=== PATIENT | male | born 1965 | race Caucasian/White ===

== ENCOUNTER 2022-11-21 08:54 | Outpatient (CLI) | payer OTHER, SELFPAY ==
--- NOTE | 2022-11-21 09:10 | CRLHL7_ITS ---
For Patients: As a result of the Century Cures Act, medical imaging exams and procedure reports are released immediately into your electronic medical record. You may view this report before your referring provider. If you have questions, please contact your health care provider. HISTORY: Increased right upper leg weakness. Right anterior inguinal region pain. Patient with history of rectal cancer. TECHNIQUE: Noncontrast and contrast enhanced MRI of the pelvis. 15 mL of Dotarem intravenous gadolinium administered. COMPARISON: PET-CT from 09/06/2022. CT from 09/02/2022. FINDINGS: Osseous structures: Progressive osseous metastatic disease is present with multifocal metastatic lesions involving the pelvis and proximal femora, several of which are associated with extraosseous tumor extension. There is an approximately 5.2 x 4.2 x 5.5 cm metastatic lesion associated with the right anterior inferior iliac spine as seen on axial T1 post moy fat-sat image #35 series 9. That lesion demonstrates cortical destruction, cortical violation and associated soft tissue tumor extension. On axial STIR image #23 of series 5, there is a focus of linear signal abnormality involving that metastatic lesion which likely reflects the presence of a pathologic fracture. Note that this involves the rectus femoris direct head attachment site. There is also extension of that metastatic tumor into the right iliopsoas muscle. Metastatic lesion involving the right iliac wing demonstrates extraosseous tumor extension anteriorly greater than posteriorly. Multiple additional metastatic lesions are present. Small area of marrow signal abnormality involving the right anterior acetabulum on coronal T1 image #16 of series 2 demonstrates a relatively linear morphology and may indicate a small nondisplaced incomplete fracture. Metastatic lesion involving the anterior intertrochanteric region of the left proximal femur measures approximately 2.5 cm in size, without pathologic fracture. - Hip joints: Mild degenerative changes. No hip joint effusion on either side. No avascular necrosis of either femoral head. - Musculotendinous structures and bursae: No distal gluteal tendon tear. No trochanteric bursal fluid collection. Common hamstring tendons are intact. Distal iliopsoas tendons are intact. - Other findings: Degenerative changes of the pubic symphysis and sacroiliac joints. Degenerative changes within the lower lumbar spine. - Intrapelvic soft tissues: No deep pelvic fluid collection. There are small fat containing inguinal hernias. IMPRESSION: 1. Progressive osseous metastatic disease within the pelvis and proximal femora. 2. On the right, there is a metastatic lesion involving the anterior-inferior iliac spine with associated cortical destruction and extraosseous tumor extension. Suspected pathologic fracture associated with that metastasis. 3. Somewhat linear marrow signal abnormality involving the right anterior acetabulum which may indicate the presence of a small nondisplaced incomplete fracture. 4. Metastatic lesion involving the anterior intertrochanteric region of the left proximal femur, without fracture. Dictated by Junior Jacobson MD @ 11/23/2022 9:22:58 PM (Electronically Signed)
--- NOTE | 2022-11-21 10:15 | CRLHL7_ITS ---
For Patients: As a result of the 21st Century Cures Act, medical imaging exams and procedure reports are released immediately into your electronic medical record. You may view this report before your referring provider. If you have questions, please contact your health care provider. Indication: Increased right upper leg weakness, right anterior inguinal pain. History of rectal cancer. Technique: Multiplanar, multisequence, MRI of the lumbar spine, obtained without and with contrast. A total of 15 mL of gadolinium based IV contrast was administered. Comparison: CT chest abdomen pelvis 01/28/2022 Findings: Preserved lumbar lordosis. No significant spondylolisthesis. Diffuse fatty marrow changes throughout the sacrum, presumed posttreatment-related. T12: Right eccentric superimposed compression fracture without significant retropulsion. L1: T1 hypointense, enhancing lesion involving the spinous process and inferior articular facets. L4: T1 hypointense, enhancing lesions bilateral vertebral body, right larger than left. L5: T1 hypointense, enhancing lesion left superolateral body. S1: Mild superior endplate compression fracture. Right ilium: Multiple (at least 3) T1 hypointense enhancing lesions, including extraosseous extension at the right iliac wing (5-7, image 41). The conus terminates at L1-2. No evidence of arachnoiditis. No suspicious leptomeningeal enhancement. Incidental left renal cyst. Scattered spondylosis, with anterior projecting osteophytes/bridging syndesmophytes in the lower thoracic/upper lumbar spine, scattered shallow disc bulges and facet arthropathy. Mild-moderate bilateral neural foraminal narrowing at L5-S1. However, no evidence of significant spinal canal stenosis. Impression: 1. Multiple enhancing osseous lesions, suspicious for metastatic disease, specifically the L1 posterior elements, L4 and L5 vertebral bodies, and multiple right iliac lesions including exophytic/extraosseous extension at the right iliac wing. 2. Superior endplate compression fractures at T12 and S1. 3. Spondylosis with mild-moderate bilateral L5-S1 neural foraminal narrowing, but no significant spinal canal stenosis. Dictated by Tsering Jenkins MD @ 11/21/2022 12:51:02 PM ----- ADDENDUM ----- Exam report was faxed and message was left for Dr. New at 1 p.m. on 11/21/2022. Dictated by Tsering Jenkins MD @ Nov 21 2022 1:39PM ----- ADDENDUM ----- Request is made to compare to an outside PET-CT from 09/06/2022, which is now available for review. The enhancing osseous lesions at L1, L4, L5, and the medial right ilium are not apparent on the outside PET-CT, and likely new from that exam. The right iliac wing lesion demonstrates FDG avidity on the prior PET exam. However, the exophytic/extraosseous component is likely new over the interval. Dictated by Tsering Jenkins MD @ Nov 25 2022 9:25AM (Electronically Signed)
== END 2022-11-21 08:55 | disposition home or self-care (01) ==
LOC: MRI 08:55
PROVIDERS: Visit Provider Clinical Nurse Specialist
DX: M79.651 Pain in right thigh (principal); C79.51 Secondary malignant neoplasm of bone; C18.9 Malignant neoplasm of colon, unspecified; M48.54XA Collapsed vertebra, not elsewhere classified, thoracic region, initial encounter for fracture; M48.58XA Collapsed vertebra, not elsewhere classified, sacral and sacrococcygeal region, initial encounter for fracture; M47.897 Other spondylosis, lumbosacral region; C41.4 Malignant neoplasm of pelvic bones, sacrum and coccyx; M89.9 Disorder of bone, unspecified
CPT/HCPCS: 72158; 72197; A9575

== ENCOUNTER 2022-11-25 14:33 | Outpatient (CLI) | payer OTHER, SELFPAY ==
--- NOTE | 2022-11-25 15:00 | CRLHL7_ITS ---
For Patients: As a result of the Cures Act, medical imaging exams and procedure reports are released immediately into your electronic medical record. You may view this report before your referring provider. If you have questions, please contact your health care provider. Indication: SECONDARY MALIGNANT NEOPLASM BONE Technique: Two views left hip Comparison: MRI 11/21/2022 Findings: Subtle lytic lesion within the inferior pubic ramus measuring 2.6 cm. Additional inferior pubic ramus lesion noted superiorly measuring 2.3 cm. Subtle intratrochanteric lesion measuring 2.9 cm. Additional lesion within the right inferior pubic ramus. No pathologic fracture. Impression: Multiple subtle lytic lesions. Dictated by Bandar Coughlin MD @ 11/26/2022 11:07:33 AM (Electronically Signed)
--- NOTE | 2022-11-25 15:00 | CRLHL7_ITS ---
For Patients: As a result of the Cures Act, medical imaging exams and procedure reports are released immediately into your electronic medical record. You may view this report before your referring provider. If you have questions, please contact your health care provider. Indication: SECONDARY MALIGNANT NEOPLASM BONE Technique: AP pelvis Comparison: MRI 11/21/2022 Findings: Multifocal subtle lytic lesions are present including a pathologic fracture of the right superior acetabulum. Mild degenerative changes. Postop changes of distal colectomy. Impression: Similar multifocal metastatic lesions with pathologic fracture involving the right superior acetabulum. Dictated by Bandar Coughlin MD @ 11/26/2022 11:34:38 AM (Electronically Signed)
--- NOTE | 2022-11-25 15:05 | CRLHL7_ITS ---
For Patients: As a result of the Century Cures Act, medical imaging exams and procedure reports are released immediately into your electronic medical record. You may view this report before your referring provider. If you have questions, please contact your health care provider. Indication: SECONDARY MALIGNANT NEOPLASM BONE Technique: Two views right hip Comparison: MRI 11/21/2022 Findings: Large lytic lesion within the superior acetabulum measuring 5.5 cm with pathologic fracture laterally. Small subtle lesion in the intertrochanteric right proximal femur. Additional lesion within the inferior pubic ramus. Impression: Large lytic lesion in the superior acetabulum with pathologic fracture. Dictated by Bandar Couhglin MD @ 11/26/2022 11:13:47 AM (Electronically Signed)
--- NOTE | 2022-11-25 15:20 | CRLHL7_ITS ---
For Patients: As a result of the Century Cures Act, medical imaging exams and procedure reports are released immediately into your electronic medical record. You may view this report before your referring provider. If you have questions, please contact your health care provider. Indication: METASTATIC RECTAL CANCER WITH BONE METASTASES, LEFT FOOT PAIN Technique: Left foot 3 views Comparison: CT-PET 09/06/2022 Findings: Bones: Alignment is normal. No fractures or bone lesions. Small calcaneal spurs. Joint spaces: Joint spaces are well maintained. No degenerative changes. Soft tissues: Unremarkable. Impression: No evidence of a destructive osseous lesion or fracture. Dictated by Bandar Coughlin MD @ 11/26/2022 11:29:13 AM (Electronically Signed)
== END 2022-11-25 14:34 | disposition home or self-care (01) ==
LOC: RAD 14:34
PROVIDERS: Visit Provider Physician Assistant
DX: C20 Malignant neoplasm of rectum (principal); C79.51 Secondary malignant neoplasm of bone; M62.81 Muscle weakness (generalized); M47.897 Other spondylosis, lumbosacral region
CPT/HCPCS: 72190; 73502; 73630

== ENCOUNTER 2022-11-27 08:35 | Outpatient (CLI) | payer OTHER, SELFPAY ==
--- NOTE | 2022-11-27 09:15 | CRLHL7_ITS ---
For Patients: As a result of the Century Cures Act, medical imaging exams and procedure reports are released immediately into your electronic medical record. You may view this report before your referring provider. If you have questions, please contact your health care provider. Indication: Compression fracture at T12, back pain, leg weakness, rule out cord compression, metastatic disease Technique: Multiplanar, multisequence MRI of the thoracic spine, obtained without contrast. Comparison: MRI lumbar spine 11/21/2022, PET-CT 09/06/2022 Findings: Slight straightening of the thoracic kyphotic curve. No significant spondylolisthesis. T1 hypointense, avidly enhancing lesion involving the left anteroinferior T8 vertebral body, suspicious for metastatic disease. Additional avidly enhancing/expansile lesions at the right 5th and 10th ribs (series 10, images 27 and 52). Mild FDG avidity was noted in these regions on the prior PET-CT. Additional smaller enhancing lesion slightly more lateral along the posterior right 10th rib (series 10, image 59), without corresponding FDG avidity on prior PET. Redemonstration of T12 superior endplate compression fracture, with confluent bony edema and enhancement, but no significant cortical retropulsion. The visualized spinal cord appears normal in course, caliber, and intrinsic signal. Scattered spondylosis, with moderate left neural foraminal stenosis at T10-11, and mild foraminal narrowing elsewhere. No evidence of significant spinal canal stenosis. Small left pleural effusion. Impression: 1. Avidly enhancing lesion of the T8 vertebral body, with enhancing/expansile lesions of the right 5th and 10th ribs, most consistent with metastatic disease. When compared to the 09/06/2022 PET-CT, there was corresponding FDG avidity at the expansile rib lesions, but not at the T8 vertebral body lesion or the more lateral non expansile right 10th rib lesion. 2. Similar configuration of the T12 superior endplate compression fracture with confluent bony edema and enhancement. 3. Scattered spondylosis, with moderate right T10-11 neural foraminal stenosis, but no significant spinal canal stenosis. Dictated by Tsering Jenkins MD @ 11/27/2022 2:06:49 PM (Electronically Signed)
== END 2022-11-27 08:36 | disposition home or self-care (01) ==
PROVIDERS: Visit Provider Clinical Nurse Specialist
DX: C18.9 Malignant neoplasm of colon, unspecified (principal); C79.51 Secondary malignant neoplasm of bone; C78.00 Secondary malignant neoplasm of unspecified lung; M48.54XA Collapsed vertebra, not elsewhere classified, thoracic region, initial encounter for fracture; M47.894 Other spondylosis, thoracic region
CPT/HCPCS: 72157; A9575

== ENCOUNTER 2022-12-26 09:01 | Outpatient (CLI) | payer OTHER, SELFPAY | END 2022-12-26 09:02 | disposition home or self-care (01) | LOC: MRI 09:02 | PROVIDERS: Visit Provider Internal Medicine | DX: C79.31 Secondary malignant neoplasm of brain (principal) | CPT/HCPCS: 70553; A9575 ==

== ENCOUNTER 2023-03-06 10:01 | Outpatient (CLI) | payer OTHER, SELFPAY ==
--- NOTE | 2023-03-06 10:15 | CRLHL7_ITS ---
For Patients: As a result of the Century Cures Act, medical imaging exams and procedure reports are released immediately into your electronic medical record. You may view this report before your referring provider. If you have questions, please contact your health care provider. INDICATION: Follow up brain mass. History of rectal cancer. Multifocal metastatic disease. TECHNIQUE: Brain MRI with contrast. The following sequences were obtained: Sagittal T1 weighted sequence. DWI and ADC mapping sequences. 3D T2 sequence. 3D FLAIR sequence. T1 weighted post-contrast sequence(s). 15 cc of Dotarem gadolinium based contrast agent was used. COMPARISON: Brain MRI 12/26/2022. FINDINGS: Again demonstrated is the oval T2 hyperintense and peripherally enhancing mass within the left lateral cerebellar hemisphere. It measures 40 millimeters in AP dimension, 49 millimeters in TR dimension, and 27 millimeters in CC dimension. It is decreased in size and severity of enhancement since prior exam. Surrounding vasogenic edema has also decreased. There is reduced mass effect upon the 4th ventricle. No new enhancing intracranial lesions. However, there is a 9 millimeter oval hyperintense lesion within the right anterior temporal white matter as well as an 8 millimeter lesion within the right central cerebellar hemisphere which do not appear typical for ischemia or demyelination and could reflect sites of additional metastatic disease. No evidence of acute ischemia. No hydrocephalus or extra-axial collections. The pituitary gland, parasellar structures and optic chiasm are normal. All the major intracranial vascular structures demonstrate normal flow-related signal. The orbital contents are normal. Low T1 signal within the odontoid process and right C1 lateral mass, new and possibly reflecting osseous metastases. Mild paranasal sinus mucosal thickening. Scattered fluid left-sided mastoid air cells. No extracranial soft tissue findings. IMPRESSION: 1. The left cerebellar oval mass is decreased in size in avidity of enhancement, with accompanying reduction of surrounding vasogenic edema. This may represent a treatment response. 2. New smaller nonenhancing lesions within the right anterior temporal white matter and right cerebellar hemisphere, technically indeterminate but suspicious for sites of nonenhancing metastatic disease. Attention on follow-up recommended. 3. Probable osseous metastatic disease odontoid process and right C1 lateral mass. Dictated by Abhijeet Demarco MD @ 03/06/2023 3:56:40 PM (Electronically Signed)
== END 2023-03-06 10:02 | disposition home or self-care (01) ==
LOC: MRI 10:01
PROVIDERS: Visit Provider Internal Medicine
DX: C79.31 Secondary malignant neoplasm of brain (principal)
CPT/HCPCS: 70553; A9575

== ENCOUNTER 2023-03-12 12:15 | Outpatient (RCR) | payer OTHER, SELFPAY ==
--- NOTE | 2022-09-19 14:28 | ONC.NURNOTE ---
Message left on VM capecitabine start follow up call
[2022-09-30 08:16] LABS: Basophils Absolute Auto 0.01 K/uL (0.00-0.30); Basophils Percent Auto 0.2 % (0.0-3.0); Eosinophils Absolute Auto 0.15 K/uL (0.00-0.50); Eosinophils Percent Auto 3.2 % (0.0-7.0); Hematocrit 39.9 % (37.0-53.0); Hemoglobin* 13.4 gm/dL (13.5-17.5); Immature Granulocytes Abs Auto 0.01 K/uL (0.00-0.30); Immature Granulocytes Pct Auto 0.2 %; Lymphocytes Percent Auto 5.2 % (20-44); Mean Corpuscular HGB Conc 34 gm/dL (32-36); Mean Corpuscular Hemoglobin 32 pg (26-34); Mean Corpuscular Volume 96 fL (80-100); Monocytes Percent Auto 7.1 % (0.0-11.0); Neutrophils Percent Auto 84.1 % (42.0-72.0); Platelet Count* 148 K/uL (140-440); RDW Coefficient of Variation % 13.6 % (11.5-15.5); Red Blood Count 4.16 m/uL (4.30-5.90); White Blood Count* 4.66 K/uL (4.50-11.00)
[2022-09-30 08:21] LABS: Slide Review Reflex No
[2022-09-30 08:25] LABS: Albumin* 3.8 g/dL (3.3-5.0); Chloride* 101 mmol/L (96-114)
[2022-09-30 08:26] LABS: Potassium* 3.8 mmol/L (3.6-5.1); Sodium* 136 mmol/L (135-149)
[2022-09-30 08:28] LABS: Alkaline Phosphatase* 94 U/L (40-150); Aspartate Amino Transferase* 39 U/L (12-35); Bilirubin Total* 0.7 mg/dL (0.1-1.5); Blood Urea Nitrogen* 10 mg/dL (7-30); Carbon Dioxide* 27 mmol/L (20-32); Creatinine* 0.8 mg/dL (0.5-1.5); Estimated Glomerular Filt Rate 103 ml/min; Glucose* 147 mg/dL (60-115); Total Protein* 6.5 g/dL (6.0-8.3)
[2022-09-30 08:29] LABS: Alanine Aminotransferase* 28 U/L (4-50); Calcium* 8.8 mg/dL (8.4-10.6)
[2022-10-01 09:13] LABS: Carcinoembryonic Antigen 35.9 ng/mL (<=3.8)
[2022-10-14 09:21] LABS: Basophils Percent Auto 0.5 % (0.0-3.0); Eosinophils Percent Auto 5.2 % (0.0-7.0); Hematocrit 37.4 % (37.0-53.0); Hemoglobin* 12.5 gm/dL (13.5-17.5); Immature Granulocytes Pct Auto 0.3 %; Mean Corpuscular HGB Conc 33 gm/dL (32-36); Mean Corpuscular Hemoglobin 32 pg (26-34); Mean Corpuscular Volume 97 fL (80-100); Monocytes Percent Auto 11.5 % (0.0-11.0); Neutrophils Percent Auto 76.5 % (42.0-72.0); Platelet Count* 134 K/uL (140-440); RDW Coefficient of Variation % 14.4 % (11.5-15.5); Red Blood Count 3.87 m/uL (4.30-5.90); Slide Review Reflex No; White Blood Count* 3.66 K/uL (4.50-11.00)
[2022-10-14 09:32] LABS: Albumin* 3.7 g/dL (3.3-5.0); Chloride* 107 mmol/L (96-114); Sodium* 139 mmol/L (135-149)
[2022-10-14 09:33] LABS: Potassium* 4.1 mmol/L (3.6-5.1)
[2022-10-14 09:35] LABS: Alanine Aminotransferase* 18 U/L (4-50); Alkaline Phosphatase* 85 U/L (40-150); Aspartate Amino Transferase* 31 U/L (12-35); Bilirubin Total* 0.6 mg/dL (0.1-1.5); Blood Urea Nitrogen* 12 mg/dL (7-30); Calcium* 8.8 mg/dL (8.4-10.6); Carbon Dioxide* 28 mmol/L (20-32); Creatinine* 0.8 mg/dL (0.5-1.5); Estimated Glomerular Filt Rate 103 ml/min; Glucose* 127 mg/dL (60-115); Total Protein* 6.3 g/dL (6.0-8.3)
--- NOTE | 2022-10-29 14:05 | URNOTE ---
Received request for prior auth for Bevacizumab ([id number]), Fluorouracil (J9190), Leucovorin ([id number]), Oxaliplatin ([id number]) and Aloxi ([id number]). Per [facility], Bevacizumab in not the preferred medication. This was then changed to Mvasi which has been approved 10/23/2022-05/03/2023. Per fax from [facility], Fluorouracil ([id number]), Leucovorin ([id number]), Oxaliplatin ([id number]) do not require authorization Per Renetta at [facility], Aloxi ([id number]) also does not require prior authorizaiton. Call Ref #[id number]
[2022-11-04 09:40] LABS: Eosinophils Percent Auto 3.7 % (0.0-7.0); Hematocrit 37.6 % (37.0-53.0); Hemoglobin* 12.7 gm/dL (13.5-17.5); Immature Granulocytes Pct Auto 0.2 %; Lymphocytes Percent Auto 4.4 % (20-44); Mean Corpuscular HGB Conc 34 gm/dL (32-36); Mean Corpuscular Hemoglobin 32 pg (26-34); Mean Corpuscular Volume 95 fL (80-100); Monocytes Percent Auto 12.6 % (0.0-11.0); Neutrophils Percent Auto 79.1 % (42.0-72.0); Platelet Count* 173 K/uL (140-440); RDW Coefficient of Variation % 14.5 % (11.5-15.5); Red Blood Count 3.94 m/uL (4.30-5.90); White Blood Count* 4.05 K/uL (4.50-11.00)
[2022-11-04 09:50] LABS: Slide Review Reflex No
[2022-11-04 09:59] LABS: Chloride* 105 mmol/L (96-114)
[2022-11-04 10:00] LABS: Albumin* 3.9 g/dL (3.3-5.0); Sodium* 138 mmol/L (135-149)
[2022-11-04 10:01] LABS: Potassium* 4.1 mmol/L (3.6-5.1)
[2022-11-04 10:03] LABS: Alanine Aminotransferase* 14 U/L (4-50); Alkaline Phosphatase* 92 U/L (40-150); Aspartate Amino Transferase* 34 U/L (12-35); Blood Urea Nitrogen* 11 mg/dL (7-30); Carbon Dioxide* 29 mmol/L (20-32); Creatinine* 0.8 mg/dL (0.5-1.5); Estimated Glomerular Filt Rate 103 ml/min; Total Protein* 6.7 g/dL (6.0-8.3)
[2022-11-04 10:04] LABS: Calcium* 8.8 mg/dL (8.4-10.6); Glucose* 138 mg/dL (60-115)
[2022-11-04 10:17] LABS: Appearance Urine Clear (Clear); Bilirubin Urine 1+ (Negative); Blood Urine Trace-intact (Negative); Color Urine Yellow (Yellow); Glucose Urine Negative (Negative); Ketones Urine Negative (Negative); Leukocyte Esterase Urine Negative (Negative); Nitrite Urine Negative (Negative); Protein Urine Negative (Negative); Specific Gravity Urine >= 1.030 (1.000-1.030); Urobilinogen Urine 0.2 (0.2-1.0)
[2022-11-04 10:28] LABS: Bacteria Urine Few; Mucus Urine Many; RBC Urine 0-2 (0-2); Squamous Epithelial Cell Urine Moderate (None-Few); WBC Urine 0-2 (0-5)
[2022-11-04] MEDS: dexAMETHasone 20 MG in 0.9 % SODIUM CHLORIDE 100 ml 100 ML 408 MG IVPB (13:23)
[2022-11-04] MEDS: PALONOSETRON 0.25 MG/5 ML inj IV (13:24)
--- NOTE | 2022-11-04 16:00 | ONC.NURNOTE ---
Review of oxaliplatin, 5FU, Avastin and Leucovorin questions addressed handouts given reviewed management of fever, or any other side effects consents and EDYTA reviewed and signed
[2022-11-06 14:12] VITALS: BP 133/84; PULSE 96; RESP 18; TEMP 36.1; O2SAT 97
[2022-11-19 08:28] VITALS: BP 134/95; PULSE 71; RESP 16; TEMP 36.3; O2SAT 100
[2022-11-19 08:44] LABS: Basophils Percent Auto 0.6 % (0.0-3.0); Eosinophils Percent Auto 2.9 % (0.0-7.0); Hematocrit 38.4 % (37.0-53.0); Immature Granulocytes Pct Auto 0.3 %; Lymphocytes Percent Auto 3.5 % (20-44); Mean Corpuscular HGB Conc 34 gm/dL (32-36); Mean Corpuscular Hemoglobin 32 pg (26-34); Mean Corpuscular Volume 95 fL (80-100); Monocytes Percent Auto 12.4 % (0.0-11.0); Neutrophils Percent Auto 80.3 % (42.0-72.0); Platelet Count* 172 K/uL (140-440); RDW Coefficient of Variation % 14.3 % (11.5-15.5); Red Blood Count 4.05 m/uL (4.30-5.90); White Blood Count* 3.46 K/uL (4.50-11.00)
[2022-11-19 08:45] LABS: Slide Review Reflex No
[2022-11-19 08:58] LABS: Albumin* 3.7 g/dL (3.3-5.0); Chloride* 104 mmol/L (96-114); Potassium* 4.1 mmol/L (3.6-5.1); Sodium* 137 mmol/L (135-149)
[2022-11-19 09:00] LABS: Bilirubin Total* 0.5 mg/dL (0.1-1.5); Creatinine* 0.8 mg/dL (0.5-1.5); Estimated Glomerular Filt Rate 103 ml/min
[2022-11-19 09:01] LABS: Alanine Aminotransferase* 18 U/L (4-50); Alkaline Phosphatase* 140 U/L (40-150); Aspartate Amino Transferase* 27 U/L (12-35); Blood Urea Nitrogen* 14 mg/dL (7-30); Calcium* 8.6 mg/dL (8.4-10.6); Carbon Dioxide* 28 mmol/L (20-32); Glucose* 108 mg/dL (60-115); Total Protein* 6.5 g/dL (6.0-8.3)
[2022-11-19 09:07] LABS: Appearance Urine Clear (Clear); Bilirubin Urine 1+ (Negative); Blood Urine Negative (Negative); Color Urine Yellow (Yellow); Glucose Urine Negative (Negative); Ketones Urine Trace (Negative); Leukocyte Esterase Urine Negative (Negative); Nitrite Urine Negative (Negative); Protein Urine Negative (Negative); Specific Gravity Urine 1.025 (1.000-1.030); pH Urine 6.5 (5.0-8.5)
[2022-11-19] MEDS: PALONOSETRON 0.25 MG/5 ML inj IV (11:19)
[2022-11-19] MEDS: dexAMETHasone 20 MG in 0.9 % SODIUM CHLORIDE 100 ml 100 ML 408 MG IVPB (11:19)
[2022-11-21] MEDS: SODIUM CHLORIDE 0.9 % (FLUSH) 10 ML SYRINGE IVF (15:02)
[2022-11-21] MEDS: HEPARIN 500 UNIT/5 ML SYRINGE IVF (15:02)
[2022-12-02 09:56] LABS: Basophils Percent Auto 0.2 % (0.0-3.0); Eosinophils Percent Auto 0.9 % (0.0-7.0); Hematocrit 36.9 % (37.0-53.0); Hemoglobin* 12.7 gm/dL (13.5-17.5); Immature Granulocytes Pct Auto 0.2 %; Lymphocytes Percent Auto 3.5 % (20-44); Mean Corpuscular HGB Conc 34 gm/dL (32-36); Mean Corpuscular Hemoglobin 32 pg (26-34); Mean Corpuscular Volume 93 fL (80-100); Monocytes Percent Auto 10.2 % (0.0-11.0); Platelet Count* 176 K/uL (140-440); RDW Coefficient of Variation % 14.4 % (11.5-15.5); Red Blood Count 3.99 m/uL (4.30-5.90); White Blood Count* 4.23 K/uL (4.50-11.00)
[2022-12-02 09:57] LABS: Slide Review Reflex No
[2022-12-02 10:11] LABS: Albumin* 3.9 g/dL (3.3-5.0); Chloride* 108 mmol/L (96-114); Sodium* 141 mmol/L (135-149)
[2022-12-02 10:13] LABS: Creatinine* 0.6 mg/dL (0.5-1.5); Estimated Glomerular Filt Rate 112 ml/min
[2022-12-02 10:14] LABS: Alanine Aminotransferase* 15 U/L (4-50); Alkaline Phosphatase* 171 U/L (40-150); Aspartate Amino Transferase* 23 U/L (12-35); Bilirubin Total* 0.6 mg/dL (0.1-1.5); Blood Urea Nitrogen* 11 mg/dL (7-30); Carbon Dioxide* 25 mmol/L (20-32); Glucose* 89 mg/dL (60-115); Total Protein* 6.8 g/dL (6.0-8.3)
[2022-12-04 02:02] LABS: Carcinoembryonic Antigen 60.8 ng/mL (<=3.8)
--- NOTE | 2022-12-24 12:02 | ONC.NURNOTE ---
Received call from Dr. Lam [facility] Rad Onc. Pt's recent PET shows mets to brain; coordinating with [facility] for brain MRI in concordance with 12/[address] Burgos. Rad Onc able to sched Brain MRI for Th12/26; no changes in appt with Dr. Burgos. Rad Onc also reports pt to begin Rad Tx to right shoulder and left foot.
[2022-12-30 08:39] LABS: Hematocrit 37.4 % (37.0-53.0); Hemoglobin* 12.7 gm/dL (13.5-17.5); Immature Granulocytes Pct Auto 0.9 %; Lymphocytes Percent Auto 3.6 % (20-44); Mean Corpuscular HGB Conc 34 gm/dL (32-36); Mean Corpuscular Hemoglobin 33 pg (26-34); Mean Corpuscular Volume 98 fL (80-100); Monocytes Percent Auto 14.9 % (0.0-11.0); Neutrophils Percent Auto 80.6 % (42.0-72.0); Platelet Count* 114 K/uL (140-440); RDW Coefficient of Variation % 15.2 % (11.5-15.5); Red Blood Count 3.83 m/uL (4.30-5.90); White Blood Count* 4.42 K/uL (4.50-11.00)
[2022-12-30 08:50] LABS: Appearance Urine Clear (Clear); Bilirubin Urine Negative (Negative); Blood Urine Negative (Negative); Color Urine Dark yellow (Yellow); Glucose Urine Negative (Negative); Ketones Urine Negative (Negative); Leukocyte Esterase Urine Negative (Negative); Nitrite Urine Negative (Negative); Protein Urine Negative (Negative); Specific Gravity Urine 1.025 (1.000-1.030); Urobilinogen Urine 0.2 (0.2-1.0)
[2022-12-30 08:52] LABS: Slide Review Reflex No
[2022-12-30 08:57] LABS: Albumin* 3.8 g/dL (3.3-5.0); Chloride* 106 mmol/L (96-114); Sodium* 138 mmol/L (135-149)
[2022-12-30 09:00] LABS: Alanine Aminotransferase* 27 U/L (4-50); Alkaline Phosphatase* 138 U/L (40-150); Aspartate Amino Transferase* 36 U/L (12-35); Bilirubin Total* 0.7 mg/dL (0.1-1.5); Blood Urea Nitrogen* 18 mg/dL (7-30); Carbon Dioxide* 28 mmol/L (20-32); Creatinine* 0.5 mg/dL (0.5-1.5); Estimated Glomerular Filt Rate 118 ml/min; Glucose* 119 mg/dL (60-115); Potassium* 3.8 mmol/L (3.6-5.1); Total Protein* 6.7 g/dL (6.0-8.3)
[2022-12-30 09:01] LABS: Calcium* 8.9 mg/dL (8.4-10.6)
--- NOTE | 2023-01-02 09:57 | URNOTE ---
Received request for prior auth for Donaldoa ([id number]). Per Suzanne at [facility], prior auth is not required. Call Ref #[id number]
[2023-01-13 08:28] VITALS: BP 144/90; PULSE 90; RESP 16; TEMP 36.9; O2SAT 98
[2023-01-13] MEDS: ZOLEDRONIC ACID 4 MG in 0.9 % SODIUM CHLORIDE 100 ml 100 ML 420 MG IVPB (09:52)
[2023-01-13] MEDS: dexAMETHasone 20 MG in 0.9 % SODIUM CHLORIDE 100 ml 100 ML 408 MG IVPB (10:17)
[2023-01-13] MEDS: PALONOSETRON 0.25 MG/5 ML inj IV (10:17)
[2023-01-13] MEDS: SODIUM CHLORIDE 0.9 % (FLUSH) 10 ML SYRINGE IVF (15:57)
--- NOTE | 2023-01-13 16:03 | ONC.NURNOTE ---
states better pain control now that he is on Oxycontin 15mg bid. Ibuprofen 600mg every 6-12 hr taken with food. and oxycodone 5mg prn for breadthru pain. states usually one oxycodone a day. lt ankle always swollen per pt. no reddness or open areas.
[2023-01-15 10:47] VITALS: BP 127/87; PULSE 87; RESP 16; TEMP 36.9; O2SAT 99
[2023-01-15] MEDS: 0.9 % SODIUM CHLORIDE 1000 ml 1,000 ML IV (11:12)
[2023-01-15] MEDS: SODIUM CHLORIDE 0.9 % (FLUSH) 10 ML SYRINGE IVF (12:15)
[2023-01-15] MEDS: HEPARIN 500 UNIT/5 ML SYRINGE IVF (12:15)
[2023-01-27 08:11] LABS: Basophils Percent Auto 0.4 % (0.0-3.0); Eosinophils Percent Auto 4.4 % (0.0-7.0); Hematocrit 33.2 % (37.0-53.0); Hemoglobin* 11.4 gm/dL (13.5-17.5); Immature Granulocytes Pct Auto 1.1 %; Lymphocytes Percent Auto 6.3 % (20-44); Mean Corpuscular HGB Conc 34 gm/dL (32-36); Mean Corpuscular Hemoglobin 33 pg (26-34); Mean Corpuscular Volume 97 fL (80-100); Monocytes Percent Auto 14.8 % (0.0-11.0); Platelet Count* 84 K/uL (140-440); RDW Coefficient of Variation % 14.3 % (11.5-15.5); Red Blood Count 3.44 m/uL (4.30-5.90); Slide Review Reflex No; White Blood Count* 2.71 K/uL (4.50-11.00)
[2023-01-27 08:14] LABS: Appearance Urine Clear (Clear); Bilirubin Urine 1+ (Negative); Blood Urine Negative (Negative); Color Urine Yellow (Yellow); Glucose Urine Negative (Negative); Ketones Urine Negative (Negative); Leukocyte Esterase Urine Negative (Negative); Nitrite Urine Negative (Negative); Protein Urine 2+ (Negative); Specific Gravity Urine >= 1.030 (1.000-1.030)
[2023-01-27 08:19] LABS: Albumin* 3.2 g/dL (3.3-5.0)
[2023-01-27 08:20] LABS: Chloride* 105 mmol/L (96-114); Potassium* 3.9 mmol/L (3.6-5.1); Sodium* 137 mmol/L (135-149)
[2023-01-27 08:22] LABS: Aspartate Amino Transferase* 28 U/L (12-35); Bilirubin Total* 0.6 mg/dL (0.1-1.5); Carbon Dioxide* 29 mmol/L (20-32); Creatinine* 0.6 mg/dL (0.5-1.5); Estimated Glomerular Filt Rate 112 ml/min
[2023-01-27 08:23] LABS: Alanine Aminotransferase* 18 U/L (4-50); Alkaline Phosphatase* 118 U/L (40-150); Blood Urea Nitrogen* 12 mg/dL (7-30); Glucose* 108 mg/dL (60-115)
[2023-01-27 08:24] LABS: Bacteria Urine Few; Mucus Urine Few; Squamous Epithelial Cell Urine Few (None-Few); WBC Urine 0-2 (0-5)
[2023-01-27] MEDS: PALONOSETRON 0.25 MG/5 ML inj IV (10:16)
[2023-01-27] MEDS: dexAMETHasone 20 MG in 0.9 % SODIUM CHLORIDE 100 ml 100 ML 408 MG IVPB (10:16)
[2023-01-29] MEDS: 0.9 % SODIUM CHLORIDE 1000 ml 1,000 ML IV (10:08)
[2023-01-29 10:16] VITALS: BP 144/90; PULSE 85; RESP 18; O2SAT 99
[2023-01-29] MEDS: OXYCODONE 5 MG TABLET PO (10:41)
[2023-01-29] MEDS: HEPARIN 500 UNIT/5 ML SYRINGE IVF (11:35)
[2023-01-29] MEDS: SODIUM CHLORIDE 0.9 % (FLUSH) 10 ML SYRINGE IVF (11:35)
--- NOTE | 2023-01-29 11:35 | PC.NURSE ---
Addendum entered by Dariana Casey RN 01/29/23 11:49: Correction: pt's radiation oncologist is Dr. Lam. As a matter of fact, Dr. Lam called this RN about something else and he was updated abuot Tashi' new worsening pain. MD will call pt to discuss. Provider follow-up for Tashi at [facility] is scheduled on 02/24/2023. Original Note: Pt present at [facility] for pump off. Tashi states that over the last week his pain has been ramping up on the top of his LEFT foot. Today it is the worst it's been. He rates pain 7-8/10 with movement and weight bearing. RN addressed pt's pain management plan, he states that he is taking Oxycontin 15 mg Q12H and using Oxycodone for BTP. Tashi did not use a Oxycodone this morning as he reports never needing it so soon after taking the long acting medication. RN advised pt to use the Oxycodone as needed, as prescribed for pain management. Tashi verbalized understanding. RN discussed case with Karolina New APRN who entered a one time dose of 5 mg of oral Oxycodone to give now as pt didn't bring any from home. Tashi appreciated this and states that he will call either Dr. Burgos or Dr. Richardson from radiation if this foot pain continues to worsen. This area was radiated recently. Support offered. One liter of NS was given per written orders due to dehydration. Will communicate this new concern to pt's medical oncology team.
[2023-01-29 11:38] LABS: Total Protein Urine 15 mg/dL
[2023-01-29 11:39] LABS: Creatinine Urine 116.2 mg/dL
[2023-01-29 13:21] LABS: Collection Time Urine 24 Hours
[2023-01-29 13:22] LABS: Total Protein 24 Hour Urine 311.3 mg/Day; Total Volume 24 Hour Urine 2075 ml; Urine Creatinine mg/24 Hour 0 mg/Day
--- NOTE | 2023-02-04 16:06 | ONC.NURNOTE ---
Pt called regarding needing a refill of his Oxycontin ER 15mg BID #60 (30 day supply); when contacting his pharmacy via automatic refill, unable to refill until 02/18/23. He filled it on 01/06/23 and has 2 pills left as today is 29 days since filled. Reviewed instructions for taking; he takes as prescribed BID and alternates with Ibuprofen. He has Oxycodone 5 mg tabs for breakthrough that he seldom needs as well as Tramadol which he does not use at all. Reviewed with prescribing provider, Karolina Melvin APRN. Refill was prescribed 01/27/23. Casting Finisher confirmed with pharmacy on file; refill was able to be filled yesterday. The future refill date of 02/18/23 is based on the prescribed refill 01/27/23. Reviewed with pt Oxycontin is ready for pick-up.
[2023-02-10 08:12] VITALS: BP 116/78; PULSE 87; RESP 16; TEMP 36.3; O2SAT 98
[2023-02-10 08:24] LABS: Basophils Percent Auto 0.4 % (0.0-3.0); Eosinophils Percent Auto 1.9 % (0.0-7.0); Hematocrit 33.6 % (37.0-53.0); Hemoglobin* 11.4 gm/dL (13.5-17.5); Immature Granulocytes Pct Auto 0.4 %; Lymphocytes Percent Auto 7.8 % (20-44); Mean Corpuscular HGB Conc 34 gm/dL (32-36); Mean Corpuscular Hemoglobin 33 pg (26-34); Mean Corpuscular Volume 96 fL (80-100); Monocytes Percent Auto 18.5 % (0.0-11.0); Platelet Count* 111 K/uL (140-440); RDW Coefficient of Variation % 15.1 % (11.5-15.5)
[2023-02-10 08:26] LABS: Slide Review Reflex No
[2023-02-10 08:42] LABS: Albumin* 3.4 g/dL (3.3-5.0); Chloride* 104 mmol/L (96-114); Sodium* 137 mmol/L (135-149)
[2023-02-10 08:43] LABS: Potassium* 3.5 mmol/L (3.6-5.1)
[2023-02-10 08:43] LABS: Appearance Urine Clear (Clear); Bilirubin Urine 2+ (Negative); Blood Urine Negative (Negative); Color Urine Amber (Yellow); Glucose Urine Negative (Negative); Ketones Urine Negative (Negative); Leukocyte Esterase Urine Negative (Negative); Nitrite Urine Negative (Negative); Protein Urine 1+ (Negative); Specific Gravity Urine >= 1.030 (1.000-1.030)
[2023-02-10 08:44] LABS: Creatinine* 0.6 mg/dL (0.5-1.5); Estimated Glomerular Filt Rate 112 ml/min
[2023-02-10 08:45] LABS: Alanine Aminotransferase* 16 U/L (4-50); Alkaline Phosphatase* 134 U/L (40-150); Aspartate Amino Transferase* 24 U/L (12-35); Blood Urea Nitrogen* 12 mg/dL (7-30); Calcium* 8.3 mg/dL (8.4-10.6); Carbon Dioxide* 28 mmol/L (20-32); Glucose* 127 mg/dL (60-115); Total Protein* 6.2 g/dL (6.0-8.3)
[2023-02-10 08:57] LABS: RBC Urine 0-2 (0-2); WBC Urine 0-2 (0-5)
[2023-02-10 08:58] LABS: Amorphous Sediment Urine Few; Bacteria Urine Few; Mucus Urine Moderate; Squamous Epithelial Cell Urine Few (None-Few)
[2023-02-10] MEDS: 0.9 % SODIUM CHLORIDE 1000 ml 1,000 ML 500 ML IV (09:20)
[2023-02-10] MEDS: ZOLEDRONIC ACID 4 MG in 0.9 % SODIUM CHLORIDE 100 ml 100 ML 420 MG IVPB (10:49)
[2023-02-10] MEDS: PALONOSETRON 0.25 MG/5 ML inj IV (11:14)
[2023-02-10] MEDS: dexAMETHasone 20 MG in 0.9 % SODIUM CHLORIDE 100 ml 100 ML 420 MG IVPB (11:14)
[2023-02-12] MEDS: 0.9 % SODIUM CHLORIDE 1000 ml 1,000 ML IV (10:46)
[2023-02-12 10:47] VITALS: BP 109/79; PULSE 95; RESP 16; TEMP 36.1; O2SAT 96
[2023-02-12] MEDS: HEPARIN 500 UNIT/5 ML SYRINGE IVF (10:47)
[2023-02-12] MEDS: SODIUM CHLORIDE 0.9 % (FLUSH) 10 ML SYRINGE IVF (10:47)
[2023-02-24 08:23] LABS: Basophils Percent Auto 0.5 % (0.0-3.0); Eosinophils Percent Auto 2.7 % (0.0-7.0); Hematocrit 34.5 % (37.0-53.0); Hemoglobin* 11.5 gm/dL (13.5-17.5); Immature Granulocytes Pct Auto 0.2 %; Lymphocytes Percent Auto 5.9 % (20-44); Mean Corpuscular HGB Conc 33 gm/dL (32-36); Mean Corpuscular Hemoglobin 33 pg (26-34); Mean Corpuscular Volume 98 fL (80-100); Monocytes Percent Auto 11.2 % (0.0-11.0); Neutrophils Percent Auto 79.5 % (42.0-72.0); Platelet Count* 106 K/uL (140-440); RDW Coefficient of Variation % 16.5 % (11.5-15.5); Red Blood Count 3.51 m/uL (4.30-5.90); White Blood Count* 4.09 K/uL (4.50-11.00)
[2023-02-24 08:25] LABS: Slide Review Reflex No
[2023-02-24 08:37] LABS: Albumin* 3.4 g/dL (3.3-5.0); Chloride* 106 mmol/L (96-114)
[2023-02-24 08:38] LABS: Appearance Urine Clear (Clear); Bilirubin Urine 2+ (Negative); Blood Urine Negative (Negative); Color Urine Amber (Yellow); Glucose Urine Negative (Negative); Ketones Urine Trace (Negative); Leukocyte Esterase Urine Negative (Negative); Nitrite Urine Negative (Negative); Potassium* 3.4 mmol/L (3.6-5.1); Protein Urine 2+ (Negative); Sodium* 138 mmol/L (135-149); Specific Gravity Urine >= 1.030 (1.000-1.030); pH Urine 6.5 (5.0-8.5)
[2023-02-24 08:40] LABS: Aspartate Amino Transferase* 68 U/L (12-35); Bilirubin Total* 1.1 mg/dL (0.1-1.5); Blood Urea Nitrogen* 12 mg/dL (7-30); Carbon Dioxide* 29 mmol/L (20-32); Creatinine* 0.6 mg/dL (0.5-1.5); Estimated Glomerular Filt Rate 112 ml/min; Total Protein* 6.1 g/dL (6.0-8.3)
[2023-02-24 08:41] LABS: Alanine Aminotransferase* 40 U/L (4-50); Alkaline Phosphatase* 135 U/L (40-150); Calcium* 8.4 mg/dL (8.4-10.6); Glucose* 115 mg/dL (60-115)
[2023-02-24 08:52] LABS: RBC Urine 0-2 (0-2); WBC Urine 0-2 (0-5)
[2023-02-24 08:53] LABS: Mucus Urine Few
[2023-02-24] MEDS: HEPARIN 500 UNIT/5 ML SYRINGE IVF (11:38)
[2023-02-24] MEDS: dexAMETHasone 20 MG in 0.9 % SODIUM CHLORIDE 100 ml 100 ML 408 MG IVPB (11:38)
[2023-02-24] MEDS: PALONOSETRON 0.25 MG/5 ML inj IV (11:38)
[2023-02-24] MEDS: SODIUM CHLORIDE 0.9 % (FLUSH) 10 ML SYRINGE IVF (11:38)
--- NOTE | 2023-02-24 15:34 | ONC.NURNOTE ---
Kinza well. was a bit upset he had to wait 20 minutes for pharmacy med to be ready. did appoligize.
[2023-02-26] MEDS: 0.9 % SODIUM CHLORIDE 1000 ml 1,000 ML IV (12:54)
[2023-02-26] MEDS: SODIUM CHLORIDE 0.9 % (FLUSH) 10 ML SYRINGE IVF (12:54)
[2023-02-26] MEDS: HEPARIN 500 UNIT/5 ML SYRINGE IVF (12:54)
[2023-02-26 13:00] VITALS: BP 102/69; PULSE 85; RESP 16; TEMP 36.8; O2SAT 98
--- NOTE | 2023-02-26 13:13 | ONC.NURNOTE ---
PET ordered placed by Dr Burgos at [place] date is 03/17 when patient is traveling message sent to Dr burgos that if patient unable to move pET to date prior to 03/17/23 then he will wait to have PET done after he returns from [place] on 03/24/23 next chemo and VV with provider set up for 03/25/23- may need to be changed to accomodate PET schedule
[2023-03-06] MEDS: SODIUM CHLORIDE 0.9 % (FLUSH) 10 ML SYRINGE IVF (11:19)
[2023-03-06] MEDS: HEPARIN 500 UNIT/5 ML SYRINGE IVF (11:19)
[2023-03-10 08:43] LABS: Appearance Urine Clear (Clear); Bilirubin Urine Negative (Negative); Blood Urine Negative (Negative); Color Urine Yellow (Yellow); Glucose Urine Negative (Negative); Ketones Urine Negative (Negative); Leukocyte Esterase Urine Negative (Negative); Nitrite Urine Negative (Negative); Protein Urine Negative (Negative); Specific Gravity Urine 1.015 (1.000-1.030); Urobilinogen Urine 0.2 (0.2-1.0)
[2023-03-10 08:50] LABS: Basophils Percent Auto 0.2 % (0.0-3.0); Eosinophils Percent Auto 0.5 % (0.0-7.0); Hematocrit 32.3 % (37.0-53.0); Hemoglobin* 10.9 gm/dL (13.5-17.5); Immature Granulocytes Pct Auto 0.5 %; Lymphocytes Percent Auto 4.8 % (20-44); Mean Corpuscular HGB Conc 34 gm/dL (32-36); Mean Corpuscular Hemoglobin 33 pg (26-34); Mean Corpuscular Volume 98 fL (80-100); Monocytes Percent Auto 15.7 % (0.0-11.0); Neutrophils Percent Auto 78.3 % (42.0-72.0); Platelet Count* 170 K/uL (140-440); RDW Coefficient of Variation % 16.4 % (11.5-15.5); Red Blood Count 3.29 m/uL (4.30-5.90); White Blood Count* 4.13 K/uL (4.50-11.00)
[2023-03-10 09:00] LABS: Slide Review Reflex No
[2023-03-10 09:08] LABS: Albumin* 3.4 g/dL (3.3-5.0); Chloride* 105 mmol/L (96-114)
[2023-03-10 09:09] LABS: Potassium* 3.6 mmol/L (3.6-5.1); Sodium* 137 mmol/L (135-149)
[2023-03-10 09:11] LABS: Aspartate Amino Transferase* 25 U/L (12-35); Bilirubin Total* 0.7 mg/dL (0.1-1.5); Carbon Dioxide* 26 mmol/L (20-32); Creatinine* 0.7 mg/dL (0.5-1.5); Est. Creatinine Clearance* 132.11; Estimated Glomerular Filt Rate 106 ml/min
[2023-03-10 09:12] LABS: Alanine Aminotransferase* 15 U/L (4-50); Alkaline Phosphatase* 114 U/L (40-150); Blood Urea Nitrogen* 5 mg/dL (7-30); Calcium* 8.1 mg/dL (8.4-10.6); Glucose* 104 mg/dL (60-115); Total Protein* 6.2 g/dL (6.0-8.3)
[2023-03-10 09:55] VITALS: BP 114/73; PULSE 85; RESP 16; TEMP 36.7; O2SAT 97
[2023-03-10] MEDS: dexAMETHasone 20 MG in 0.9 % SODIUM CHLORIDE 100 ml 100 ML 408 MG IVPB (11:27)
[2023-03-10] MEDS: PALONOSETRON 0.25 MG/5 ML inj IV (11:27)
--- NOTE | 2023-03-10 14:38 | ONC.NURNOTE ---
Pt here for zometa, mvasi, and folfox. Zometa held due to Calcium level of 8.1. Dr. Ahuja aware. Pt not taking calcium supplement, pt instructed to start taking calcium with vit d. Pt verbalized understanding of instructions.
[2023-03-12 12:13] VITALS: BP 153/87; PULSE 92; RESP 16; TEMP 36.4; O2SAT 98
[2023-03-12] MEDS: 0.9 % SODIUM CHLORIDE 1000 ml 1,000 ML 1050 ML IV (12:18)
[2023-03-12] MEDS: HEPARIN 500 UNIT/5 ML SYRINGE IVF (13:18)
[2023-03-12] MEDS: SODIUM CHLORIDE 0.9 % (FLUSH) 10 ML SYRINGE IVF (13:18)
== END 2023-03-12 23:59 | disposition home or self-care (01) ==
LOC: CCIC 12:15
PROVIDERS: Clinical Nurse Specialist; Nurse Practitioner Family; Visit Provider Internal Medicine Medical Oncology
DX: C18.9 Malignant neoplasm of colon, unspecified (principal); C78.00 Secondary malignant neoplasm of unspecified lung; C79.31 Secondary malignant neoplasm of brain; C79.51 Secondary malignant neoplasm of bone
CPT/HCPCS: 36415; 36591; 80053; 81003; 81015; 82378; 82570; 84156; 85025; 87086; 96360; 96368; 96376; 96413; 96415; 96416; 96417; 99211; 99212; 99214; 99215; A9270; J0640; J1100; J1642; J2469; J3489; J7030; J7050; J9190; J9263; Q5107

== ENCOUNTER 2023-05-23 12:56 | Outpatient (CLI) | payer OTHER, SELFPAY ==
--- NOTE | 2023-05-23 13:30 | CRLHL7_ITS ---
For Patients: As a result of the Century Cures Act, medical imaging exams and procedure reports are released immediately into your electronic medical record. You may view this report before your referring provider. If you have questions, please contact your health care provider. INDICATION: Progressive SOB with wheezing TECHNIQUE: Chest 2 views COMPARISON: 10/04/2019 FINDINGS: The frontal views are over exposed. Right-sided indwelling catheter again noted. There is a cavitary mass within the left perihilar lung measuring 4.4 cm. Moderate size left pleural effusion. Reticulonodular densities adjacent to the effusion. Fluid tracks into the lung apex. Focal density suspected within the lateral aspect of the right upper lobe. IMPRESSION: Limited study due to over penetration demonstrates left pleural effusion with adjacent reticulonodular densities and left perihilar cavitary mass. Dictated by Bandar Coughlin MD @ 05/23/2023 1:41:45 PM (Electronically Signed)
== END 2023-05-23 12:57 | disposition home or self-care (01) ==
LOC: RAD 12:57
PROVIDERS: Visit Provider Clinical Nurse Specialist
DX: C18.9 Malignant neoplasm of colon, unspecified (principal); C78.00 Secondary malignant neoplasm of unspecified lung; C79.51 Secondary malignant neoplasm of bone
CPT/HCPCS: 71046

== ENCOUNTER 2023-05-28 08:15 | Outpatient (RCR) | payer OTHER, SELFPAY ==
[2023-03-25 08:09] LABS: Basophils Percent Auto 0.2 % (0.0-3.0); Eosinophils Percent Auto 2.5 % (0.0-7.0); Hematocrit 35.8 % (37.0-53.0); Hemoglobin* 11.8 gm/dL (13.5-17.5); Immature Granulocytes Pct Auto 0.2 %; Lymphocytes Percent Auto 4.1 % (20-44); Mean Corpuscular HGB Conc 33 gm/dL (32-36); Mean Corpuscular Hemoglobin 33 pg (26-34); Mean Corpuscular Volume 101 fL (80-100); Monocytes Percent Auto 10.2 % (0.0-11.0); Neutrophils Percent Auto 82.8 % (42.0-72.0); Platelet Count* 127 K/uL (140-440); RDW Coefficient of Variation % 16.4 % (11.5-15.5); Red Blood Count 3.55 m/uL (4.30-5.90); White Blood Count* 4.41 K/uL (4.50-11.00)
[2023-03-25 08:10] LABS: Slide Review Reflex No
[2023-03-25 08:23] LABS: Appearance Urine Clear (Clear); Bilirubin Urine 2+ (Negative); Blood Urine Negative (Negative); Color Urine Amber (Yellow); Glucose Urine Negative (Negative); Ketones Urine Trace (Negative); Leukocyte Esterase Urine Negative (Negative); Nitrite Urine Negative (Negative); Protein Urine 1+ (Negative); Specific Gravity Urine >= 1.030 (1.000-1.030)
[2023-03-25 08:24] LABS: Albumin* 3.2 g/dL (3.3-5.0); Chloride* 104 mmol/L (96-114); Potassium* 3.2 mmol/L (3.6-5.1); Sodium* 136 mmol/L (135-149)
[2023-03-25 08:26] LABS: Bilirubin Total* 1.2 mg/dL (0.1-1.5); Carbon Dioxide* 27 mmol/L (20-32); Creatinine* 0.5 mg/dL (0.5-1.5); Estimated Glomerular Filt Rate 117 ml/min
[2023-03-25 08:27] LABS: Alanine Aminotransferase* 19 U/L (4-50); Alkaline Phosphatase* 102 U/L (40-150); Aspartate Amino Transferase* 33 U/L (12-35); Blood Urea Nitrogen* 10 mg/dL (7-30); Calcium* 8.4 mg/dL (8.4-10.6); Glucose* 120 mg/dL (60-115); Total Protein* 5.8 g/dL (6.0-8.3)
[2023-03-25 08:52] LABS: Bacteria Urine Few; Mucus Urine Many; RBC Urine 0-2 (0-2); Squamous Epithelial Cell Urine Few (None-Few); WBC Urine 0-2 (0-5)
[2023-03-25] MEDS: 0.9 % SODIUM CHLORIDE 250 ml IV (10:00)
[2023-03-25] MEDS: PALONOSETRON 0.25 MG/5 ML inj IV (10:12)
[2023-03-25] MEDS: dexAMETHasone 20 MG in 0.9 % SODIUM CHLORIDE 100 ml 100 ML 420 MG IVPB (10:12)
[2023-03-25] MEDS: 5 % DEXTROSE 250 ML IV (10:40)
[2023-03-27 11:21] VITALS: BP 119/86; PULSE 95; RESP 16; TEMP 36.6; O2SAT 96
[2023-03-27] MEDS: 0.9 % SODIUM CHLORIDE 1000 ml 1,000 ML IV (11:30)
--- NOTE | 2023-03-27 13:49 | ONC.NURNOTE ---
states no N/V. denies diarrhea or constipation. states eating and drinking. denies reddness or sores. states pain not controlled with oxy ER 15mg BID. states has been taking Ibuprofen in between. states has oxy IR at home. enc him to use it for pain and if no relief please contact us.
--- NOTE | 2023-04-11 15:02 | PC.NURSE ---
Contacted Tashi today to discuss his provider visit and chemo schedule. Pt will not be treated on 04/21/2023 and then will see Dr. Ahuja and have treatment on 04/28/2023. Pt verbalized understanding.
[2023-04-28 09:54] LABS: Appearance Urine Clear (Clear); Bilirubin Urine Negative (Negative); Blood Urine Negative (Negative); Color Urine Dark yellow (Yellow); Glucose Urine Negative (Negative); Ketones Urine Negative (Negative); Leukocyte Esterase Urine Negative (Negative); Nitrite Urine Negative (Negative); Protein Urine Negative (Negative); Urobilinogen Urine 0.2 (0.2-1.0); pH Urine 6.5 (5.0-8.5)
[2023-04-28 09:59] LABS: Basophils Absolute Auto 0.01 K/uL (0.00-0.30); Basophils Percent Auto 0.2 % (0.0-3.0); Eosinophils Absolute Auto 0.13 K/uL (0.00-0.50); Eosinophils Percent Auto 2.2 % (0.0-7.0); Hematocrit 40.2 % (37.0-53.0); Hemoglobin* 13.1 gm/dL (13.5-17.5); Immature Granulocytes Abs Auto 0.02 K/uL (0.00-0.30); Immature Granulocytes Pct Auto 0.3 %; Lymphocytes Percent Auto 3.6 % (20-44); Mean Corpuscular HGB Conc 33 gm/dL (32-36); Mean Corpuscular Hemoglobin 31 pg (26-34); Mean Corpuscular Volume 96 fL (80-100); Neutrophils Percent Auto 83.7 % (42.0-72.0); Platelet Count* 246 K/uL (140-440); RDW Coefficient of Variation % 13.8 % (11.5-15.5); Red Blood Count 4.17 m/uL (4.30-5.90); White Blood Count* 5.91 K/uL (4.50-11.00)
[2023-04-28 10:07] LABS: Chloride* 98 mmol/L (96-114)
[2023-04-28 10:08] LABS: Potassium* 3.9 mmol/L (3.6-5.1); Sodium* 135 mmol/L (135-149)
[2023-04-28 10:10] LABS: Alkaline Phosphatase* 76 U/L (40-150); Aspartate Amino Transferase* 35 U/L (12-35); Bilirubin Total* 0.7 mg/dL (0.1-1.5); Blood Urea Nitrogen* 13 mg/dL (7-30); Carbon Dioxide* 28 mmol/L (20-32); Creatinine* 0.6 mg/dL (0.5-1.5); Est. Creatinine Clearance* 154.13; Estimated Glomerular Filt Rate 111 ml/min; Slide Review Reflex No; Total Protein* 7.2 g/dL (6.0-8.3)
[2023-04-28 10:11] LABS: Alanine Aminotransferase* 15 U/L (4-50); Calcium* 9.3 mg/dL (8.4-10.6); Glucose* 130 mg/dL (60-115)
[2023-04-28] MEDS: SODIUM CHLORIDE 0.9 % (FLUSH) 10 ML SYRINGE IVF (10:35)
[2023-04-28] MEDS: HEPARIN 500 UNIT/5 ML SYRINGE IVF (10:35)
[2023-05-07 09:43] VITALS: BP 122/91; PULSE 98; RESP 20; TEMP 36.6; O2SAT 98
--- NOTE | 2023-05-07 10:12 | URNOTE ---
Received request for prior auth for Tracey ([id number]). [facility] been approve for 3 Months. 04/29/2023-07/30/2023, to allow time to discuss alternative administration sites. See scanned insurance document
[2023-05-07 10:47] LABS: Basophils Absolute Auto 0.01 K/uL (0.00-0.30); Basophils Percent Auto 0.1 % (0.0-3.0); Eosinophils Absolute Auto 0.09 K/uL (0.00-0.50); Hematocrit 40.3 % (37.0-53.0); Hemoglobin* 13.3 gm/dL (13.5-17.5); Immature Granulocytes Abs Auto 0.03 K/uL (0.00-0.30); Immature Granulocytes Pct Auto 0.3 %; Lymphocytes Percent Auto 2.8 % (20-44); Mean Corpuscular HGB Conc 33 gm/dL (32-36); Mean Corpuscular Hemoglobin 31 pg (26-34); Mean Corpuscular Volume 94 fL (80-100); Monocytes Percent Auto 9.1 % (0.0-11.0); Neutrophils Percent Auto 86.7 % (42.0-72.0); Platelet Count* 285 K/uL (140-440); RDW Coefficient of Variation % 13.8 % (11.5-15.5); Red Blood Count 4.31 m/uL (4.30-5.90); White Blood Count* 8.91 K/uL (4.50-11.00)
[2023-05-07 10:51] LABS: Slide Review Reflex No
[2023-05-07 11:07] LABS: Albumin* 4.2 g/dL (3.3-5.0); Chloride* 98 mmol/L (96-114)
[2023-05-07 11:08] LABS: Potassium* 3.8 mmol/L (3.6-5.1); Sodium* 135 mmol/L (135-149)
[2023-05-07 11:10] LABS: Aspartate Amino Transferase* 44 U/L (12-35); Bilirubin Total* 0.7 mg/dL (0.1-1.5); Carbon Dioxide* 29 mmol/L (20-32); Creatinine* 0.5 mg/dL (0.5-1.5); Est. Creatinine Clearance* 184.95; Estimated Glomerular Filt Rate 117 ml/min; Total Protein* 7.7 g/dL (6.0-8.3)
[2023-05-07 11:11] LABS: Alanine Aminotransferase* 18 U/L (4-50); Alkaline Phosphatase* 103 U/L (40-150); Blood Urea Nitrogen* 22 mg/dL (7-30); Calcium* 9.8 mg/dL (8.4-10.6); Glucose* 124 mg/dL (60-115)
[2023-05-07] MEDS: PEMBROLIZUMAB 200 MG, TUBING PRIMARY 1 EACH, In-line 0.2 micron filter set 1 EACH in 0.... 216 MG IVPB (12:51)
[2023-05-07] MEDS: SODIUM CHLORIDE 0.9 % (FLUSH) 10 ML SYRINGE IVF (12:53)
[2023-05-07] MEDS: HEPARIN 500 UNIT/5 ML SYRINGE IVF (12:53)
--- NOTE | 2023-05-09 14:22 | ONC.NURNOTE ---
Fentanyl patches prescribed by Dr Ahuja called - [facility] will not have in stock until next week request to be sent to [facility]- in stock Karolina New resubmitted the RX message left on wifes voicemail
[2023-05-23 13:05] VITALS: BP 124/86; PULSE 90; RESP 16; TEMP 35.6; O2SAT 93
[2023-05-23 13:25] LABS: Eosinophils Percent Auto 0.3 % (0.0-7.0); Hematocrit 41.8 % (37.0-53.0); Hemoglobin* 13.4 gm/dL (13.5-17.5); Immature Granulocytes Pct Auto 0.6 %; Lymphocytes Percent Auto 2.1 % (20-44); Mean Corpuscular HGB Conc 32 gm/dL (32-36); Mean Corpuscular Hemoglobin 30 pg (26-34); Mean Corpuscular Volume 92 fL (80-100); Monocytes Percent Auto 5.7 % (0.0-11.0); Neutrophils Percent Auto 91.3 % (42.0-72.0); Platelet Count* 254 K/uL (140-440); RDW Coefficient of Variation % 14.8 % (11.5-15.5); Red Blood Count 4.54 m/uL (4.30-5.90); White Blood Count* 12.64 K/uL (4.50-11.00)
[2023-05-23 13:29] LABS: Slide Review Reflex No
[2023-05-23 13:39] LABS: Albumin* 3.7 g/dL (3.3-5.0); Chloride* 97 mmol/L (96-114); Potassium* 3.8 mmol/L (3.6-5.1); Sodium* 134 mmol/L (135-149)
[2023-05-23 13:41] LABS: Creatinine* 0.5 mg/dL (0.5-1.5); Est. Creatinine Clearance* 184.95; Estimated Glomerular Filt Rate 117 ml/min
[2023-05-23 13:42] LABS: Alanine Aminotransferase* 34 U/L (4-50); Alkaline Phosphatase* 115 U/L (40-150); Aspartate Amino Transferase* 51 U/L (12-35); Bilirubin Total* 0.8 mg/dL (0.1-1.5); Blood Urea Nitrogen* 25 mg/dL (7-30); Calcium* 9.3 mg/dL (8.4-10.6); Carbon Dioxide* 27 mmol/L (20-32); Glucose* 119 mg/dL (60-115)
[2023-05-24 20:16] LABS: Cortisol, Serum 4.6 ug/dL
--- NOTE | 2023-05-26 10:40 | ONC.NURNOTE ---
Patient's Jackie called stating patient is no better than he was Friday and wonders if she can take him to [place] emergency room or does he have to come to [facility]. Drivability Technician discussed this with Karolina Melvin APRN and stated it would be fine to go to nearest ER for evaluation of SOB.
--- NOTE | 2023-05-28 09:20 | PC.NURSE ---
Pt's called today to share that Tashi is still admitted at [facility] and will not be attending his visit today for Keytruda. She also shares that the medical team in the hospital are discussing the fact that the Keytruda may have caused pneumonitis. This information was passed along to BUSTER Allen and Karolina New APRN.
--- NOTE | 2023-05-28 15:50 | ONC.NURNOTE ---
Patient's Jackie called with update on Tashi. She stated he has now been moved out of the ICU and into a regular room. The doctor suspects it could be the Keytruda causing the lung problem states patient on high doses of prednisone and got a shot in his back for pain which was very helpful. She let us know she will keep us updated as they continue to do research as a medical science liaison is suppose to see Tashi today and she did state they are testing his fluid they drained off of him. At this time Jackie stated he prefers to be in hospital right now.
--- NOTE | 2023-05-30 15:34 | ONC.NURNOTE ---
Asbestos Hazard Abatement Worker talked with patient's and she stated they met with team yesterday and feel Tashi will be at hospital for atleast another week and he decide on DNR/DNI BUT NOT hospice at this time. She will call on Friday with update
== END 2023-09-21 23:59 | disposition home or self-care (01) ==
LOC: CCIC 08:15
PROVIDERS: Clinical Nurse Specialist; Internal Medicine Medical Oncology; Visit Provider Internal Medicine Hematology & Oncology
DX: C19 Malignant neoplasm of rectosigmoid junction (principal)
CPT/HCPCS: 36415; 36591; 80053; 81003; 81015; 82533; 84443; 85025; 87086; 96360; 96366; 96368; 96376; 96413; 96415; 96416; 96417; 99212; 99213; 99214; 99215; J0640; J1100; J1642; J2469; J7030; J7050; J9190; J9263; J9271; Q5107